=== PATIENT | female | born 1940 | race Caucasian/White ===

== ENCOUNTER 2017-09-06 07:49 | Day surgery (SDC) | payer MEDICARE, BC ==
[~2017-09-06] VITALS: Ht 167.6 cm; Wt 54.1 kg
[2017-09-06 08:05] VITALS: BP 151/79
[2017-09-06] MEDS ORDERED: LIDOcaine 1% 30ml preserv. free vial SQ ONE ×2 (08:10→08:40)
[2017-09-06] MEDS ORDERED: epiNEPHrine inj 0.3 MG in LIDOcaine 1% 30ml vial 29.7 ML IJ ONE (08:10)
[2017-09-06] MEDS ORDERED: normal saline 1000ml 1,000 ML IV PRN (08:15)
[2017-09-06] MEDS ORDERED: albumin (human) 25% 100 ML IV solution IV PRN (08:15)
[2017-09-06] MEDS ORDERED: LISI-600 PO (08:22)
[2017-09-06] MEDS ORDERED: TRAZ-146 PO (08:22)
[2017-09-06] MEDS ORDERED: ATOR20TA PO (08:22)
[2017-09-06] MEDS ORDERED: CYAN100087 PO (08:22)
[2017-09-06] MEDS ORDERED: OMEG1CAP2 PO (08:22)
[2017-09-06] MEDS ORDERED: ASPI81TA52 PO (08:22)
[2017-09-06] MEDS ORDERED: LEVO100T PO (08:22)
[2017-09-06 09:23] VITALS: BP 159/76
[2017-09-06 09:30] VITALS: BP 151/70
[2017-09-06 09:45] VITALS: BP 150/64
[2017-09-06 11:30] LABS: GLUCOSE,BODY FLUID 81 MG/DL; LDH,BODY FLUID 294 U/L; TOTAL PROTEIN,BODY FLUID 4.5 G/DL
[2017-09-06 13:09] LABS: BFAPPEAR HAZY; LYMPHOCYTES,BODY FLUID 51 %; MONOCYTES,BODY FLUID 18 %; NEUTROPHILS,BODY FLUID 31 %
[2017-09-06 13:10] LABS: BF RBC COUNT 340 /CU MM; BF WBC COUNT 145 /CU MM (0-1000); BFCOLOR YELLOW; BFVOLUME 51 ML
== END 2017-09-06 10:04 | disposition home or self-care (01) ==
LOC: SSTAY O 07:49
PROVIDERS: ATTEND Radiology Diagnostic Radiology
DX: J90 Pleural effusion, not elsewhere classified (principal); E03.9 Hypothyroidism, unspecified; E78.5 Hyperlipidemia, unspecified; I10 Essential (primary) hypertension; Z79.82 Long term (current) use of aspirin; Z98.42 Cataract extraction status, left eye; Z79.891 Long term (current) use of opiate analgesic; Z79.899 Other long term (current) drug therapy; Z98.890 Other specified postprocedural states
CPT/HCPCS: 32555; 71045; 82945; 83615; 84157; 87070; 89051; J0171; J3490; J7030; 88108; 88305; A6257

== ENCOUNTER 2019-12-02 14:57 | Emergency (ER) | payer MEDICARE, BC ==
[~2019-12-02] VITALS: Ht 167.6 cm; Wt 80.0 kg
[~2019-12-02 14:57] MED LIST: ASPI81TA52 PO; ATOR20TA PO; CYAN100087 PO; LEVO100T PO; LISI-600 PO; OMEG1CAP2 PO; TRAZ-256 PO
[2019-12-02 17:49] LABS: BASOPHILS % (AUTO) 0.7 % (0-1); EOSINOPHILS # (AUTO) 0.1 X10'3 (0-0.9); EOSINOPHILS % (AUTO) 2.4 % (0-6); HEMATOCRIT 35.4 % (35.0-45.0); LYMPHOCYTES # (AUTO) 1.6 X10'3 (1.1-4.8); LYMPHOCYTES % (AUTO) 27.4 % (21-51); MEAN CORPUSCULAR HEMOGLOBIN 31.6 PG (27.0-31.0); MEAN CORPUSCULAR HGB CONC 33.8 g/dL (33.0-36.5); MEAN CORPUSCULAR VOLUME 93.4 FL (78-98); MEAN PLATELET VOLUME 7.9 FL (7.4-10.4); MONOCYTES # (AUTO) 0.6 X10'3 (0-0.9); MONOCYTES % (AUTO) 10.2 % (2-12); NEUTROPHILS # (AUTO) 3.5 X10'3 (1.8-7.7); NEUTROPHILS % (AUTO) 59.3 % (42-75); PLATELET COUNT 229 X10'3 (140-440); RED BLOOD COUNT 3.79 X10'6 (4.20-5.60); RED CELL DISTRIBUTION WIDTH 13.4 % (11.5-14.5); WHITE BLOOD COUNT 5.8 X10'3 (4.5-11.0)
[2019-12-02 18:06] LABS: ALANINE AMINOTRANSFERASE 16 U/L (12-78); ALBUMIN 3.7 G/DL (3.4-5.0); ALBUMIN/GLOBULIN RATIO 1.2 (1.1-1.5); ALKALINE PHOSPHATASE 68 IU/L (46-116); ANION GAP 5 (8-16); ASPARTATE AMINO TRANSFERASE 12 U/L (10-37); BILIRUBIN,TOTAL 0.4 MG/DL (0.1-1.0); BLOOD UREA NITROGEN 16 MG/DL (7-18); BUN/CREATININE RATIO 21.9 (6.6-38.0); CALCIUM 9.2 MG/DL (8.5-10.1); CHLORIDE 104 MMOL/L (99-107); CREATININE 0.73 MG/DL (0.40-0.90); GLUCOSE 92 MG/DL (70-104); POTASSIUM 3.5 MMOL/L (3.5-5.1); SODIUM 139 MMOL/L (135-145); TOTAL CARBON DIOXIDE 30.4 MMOL/L (24-32); TOTAL PROTEIN 6.8 G/DL (6.4-8.2); eGFR 77 ML/MIN
[2019-12-02 18:18] VITALS: BP 173/77
--- NOTE | 2019-12-02 18:21 | NUR ---
ASSSUMED CARE OF PT SITTIN UPRIGHT IN BED . NO C/O DISCOMFORT.PLAN OF CARE UPDATED .
--- NOTE | 2019-12-03 10:11 | NUR ---
Patient called regarding Cdiff results this morning around 0900, results were pending at that time. Spoke with patient that I would check with the lab and then call her back within the hour. Spoke with patient at approx. 0955 at which Lab had stated that the Cdiff sample was unable to be processed due to solid consistancy of the stool. Patient educated regarding need to follow up with PCP if still feeling ill and not getting any better. All patients questions answered at time of call and she verbalized agreement with follow up.
== END 2019-12-02 19:03 | disposition home or self-care (01) ==
LOC: ER 14:57
DX: R19.7 Diarrhea, unspecified (principal); I10 Essential (primary) hypertension; Z79.82 Long term (current) use of aspirin; Z79.899 Other long term (current) drug therapy
CPT/HCPCS: 36415; 80053; 85025; 87324; 87449; 99283

== ENCOUNTER 2020-01-17 09:18 | Emergency (ER) | payer MEDICARE, BC ==
[~2020-01-17] VITALS: Ht 167.6 cm; Wt 54.5 kg
[2020-01-17 10:51] LABS: BASOPHILS % (AUTO) 0.5 % (0-1); EOSINOPHILS # (AUTO) 0.1 X10'3 (0-0.9); EOSINOPHILS % (AUTO) 1.5 % (0-6); HEMATOCRIT 37.1 % (35.0-45.0); HEMOGLOBIN 12.3 g/dl (12.0-16.0); LYMPHOCYTES # (AUTO) 1.4 X10'3 (1.1-4.8); LYMPHOCYTES % (AUTO) 18.2 % (21-51); MEAN CORPUSCULAR HGB CONC 33.1 g/dL (33.0-36.5); MEAN CORPUSCULAR VOLUME 93.8 FL (78-98); MEAN PLATELET VOLUME 8.1 FL (7.4-10.4); MONOCYTES # (AUTO) 1.1 X10'3 (0-0.9); MONOCYTES % (AUTO) 13.9 % (2-12); NEUTROPHILS # (AUTO) 5.1 X10'3 (1.8-7.7); NEUTROPHILS % (AUTO) 65.9 % (42-75); PLATELET COUNT 247 X10'3 (140-440); RED BLOOD COUNT 3.96 X10'6 (4.20-5.60); RED CELL DISTRIBUTION WIDTH 13.5 % (11.5-14.5); WHITE BLOOD COUNT 7.7 X10'3 (4.5-11.0)
[2020-01-17 11:09] LABS: ALANINE AMINOTRANSFERASE 28 U/L (12-78); ALBUMIN 3.8 G/DL (3.4-5.0); ALBUMIN/GLOBULIN RATIO 1.1 (1.1-1.5); ALKALINE PHOSPHATASE 77 IU/L (46-116); ANION GAP 8 (8-16); ASPARTATE AMINO TRANSFERASE 17 U/L (10-37); BILIRUBIN,TOTAL 0.4 MG/DL (0.1-1.0); BLOOD UREA NITROGEN 14 MG/DL (7-18); CALCIUM 9.2 MG/DL (8.5-10.1); CHLORIDE 103 MMOL/L (99-107); GLUCOSE 86 MG/DL (70-104); LIPASE 157 U/L (73-393); POTASSIUM 3.5 MMOL/L (3.5-5.1); SODIUM 141 MMOL/L (135-145); TOTAL CARBON DIOXIDE 29.8 MMOL/L (24-32); TOTAL PROTEIN 7.4 G/DL (6.4-8.2); eGFR 81 ML/MIN
[2020-01-17] MEDS ORDERED: iohexol 300mg/ml 100ml inj. ONE (11:29)
[2020-01-17] MEDS ORDERED: ketorolac tromethamine 15mg/ml inj. IV ONE (12:35)
[2020-01-17] MEDS ORDERED: dicyclomine 10 MG capsule PO ONE (12:35)
[2020-01-17 13:44] LABS: CLARITY,URINE CLEAR (Clear); COLOR,URINE STRAW (Yellow); GLUCOSE, URINE NEGATIVE (Neg); KETONES,URINE NEGATIVE (Neg); LEUKOCYTE ESTERASE ,URINE TRACE (Neg); NITRITES, URINE NEGATIVE (Neg); OCCULT BLOOD,URINE TRACE-LYSED (Neg); PROTEIN,URINE NEGATIVE (Neg); UROBILINOGEN,URINE 0.2 E.U/dL (0.2-1.0)
[2020-01-17 13:47] LABS: UA COLLECTION TYPE CLN CATCH MIDSTREAM
[2020-01-17 13:53] LABS: BACTERIA,URINE FEW /HPF (Neg); SQUAMOUS EPITHELIAL CELL,UR FEW /LPF (FEW); WBC,URINE 0-4 /HPF (0-4)
[2020-01-17] MEDS ORDERED: DOCU100C40 PO (14:09)
[2020-01-17 14:18] VITALS: BP 175/92
== END 2020-01-17 14:19 | disposition home or self-care (01) ==
LOC: ER 09:19
DX: R10.9 Unspecified abdominal pain (principal); R19.7 Diarrhea, unspecified; M54.5 Low back pain; I10 Essential (primary) hypertension; Z79.82 Long term (current) use of aspirin; Z79.899 Other long term (current) drug therapy
CPT/HCPCS: 36415; 74177; 80053; 81001; 83690; 85025; 87088; 96374; 99285; J1885; Q9967